=== PATIENT | female | born 1975 | race Caucasian/White ===

== ENCOUNTER → 2016-05-18 | Outpatient (CLI) | payer OTHER ==
[~2016-05-18] MED LIST: ASPI81TA28 PO; AZAT50TA25 PO; CALC-20 PO; ENAL5TAB PO; FERR325T PO; LEVOIUD VAGRING; MAGN400T5 PO; METO25TA3 PO; MULT-506 PO; OMEP20TA PO; PRED-301 PO; SYN25 PO; TACR1CAP7 PO
== END | disposition home or self-care (01) ==
LOC: C.LAB 09:57
PROVIDERS: ATTEND Family Medicine
DX: E03.9 Hypothyroidism, unspecified (principal)

== ENCOUNTER → 2016-06-01 | Outpatient (CLI) | payer OTHER | END | disposition home or self-care (01) | LOC: C.PAPS 14:17 | PROVIDERS: ATTEND Obstetrics & Gynecology | DX: Z12.4 Encounter for screening for malignant neoplasm of cervix (principal) ==

== ENCOUNTER → 2016-06-17 | Outpatient (CLI) | payer OTHER ==
[~2016-06-17] MED LIST changes: +FERR1TAB62 PO; -FERR325T PO
--- NOTE | 2016-06-17 15:21 | MAMMOGRAPHY REPORT ---
BILATERAL DIGITAL SCREENING MAMMOGRAM TOMOSYNTHESIS WITH CAD: 06/17/2016 CLINICAL HISTORY: Routine screening. Patient has no complaints. TECHNIQUE: Breast tomosynthesis in addition to standard 2D mammography was performed. Current study was also evaluated with a Computer Aided Detection (CAD) system. COMPARISON: Comparison is made to exam dated: 10/10/2013 mammogram - [facility]. BREAST COMPOSITION: The tissue of both breasts is extremely dense, which lowers the sensitivity of mammography. FINDINGS: No suspicious masses, calcifications, or areas of architectural distortion are noted in e ither breast. There has been no significant interval change compared to prior exams. IMPRESSION: ACR BI-RADS CATEGORY 1: NEGATIVE There is no mammographic evidence of malignancy. A 1 year screening mammogram is recommended. The p atient will receive written notification of the results. Approximately 10% of breast cancers are not detected with mammography. A negative mammographic repor t should not delay biopsy if a clinically suggestive mass is present. Dotty Hebert M.D. ah/:06/17/2016 15:08:39 Wagon Driver Salesperson: Sue EDMONDS(Audrey)(Maia)(BD), [facility] letter sent: Normal 1/2 BI-RADS Code: ACR BI-RADS Category 1: Negative
== END | disposition home or self-care (01) ==
LOC: C.MAMM 09:41
PROVIDERS: ATTEND Family Medicine
DX: Z12.31 Encounter for screening mammogram for malignant neoplasm of breast (principal)

== ENCOUNTER 2017-10-22 15:04 | Emergency (ER) | payer OTHER ==
[~2017-10-22] VITALS: Ht 167.6 cm; Wt 54.2 kg
[~2017-10-22 15:04] MED LIST changes: +LEVO1IUD2 VAGRING; -LEVOIUD VAGRING
[2017-10-22 15:05] VITALS: TEMP 36.6; Ht 167.6 cm; Wt 54.2 kg
[2017-10-22] MEDS ORDERED: LIDOCAINE 1% BUFFERED INJ 20 ML VIAL INFIL ONE (15:15)
[2017-10-22] MEDS ORDERED: TACR1CAP PO (15:44)
[2017-10-22] MEDS ORDERED: LEVO25TA5 PO (15:44)
[2017-10-22 15:50] VITALS: BP 110/74; PULSE 73; O2SAT 98
--- NOTE | 2017-10-22 16:30 | EMERGENCY ROOM VISIT NOTE ---
ED Visit Note First contact with patient: 15:09 Chief Complaint: I cut my left lower leg. History of Present Illness: Ms. Husain is a 42-year-old white female who ambulates into the ED accompanied by her daughter complaining of an anterior left lower leg laceration. Patient reports approximately 1 hour before she arrived in the emergency department she was reaching into. She accidentally bumped a container of yogurt. It fell out and struck her leg causing a full-thickness laceration. She control bleeding prior to arrival at the hospital. She denies any associated pain in the area of her laceration or throughout the ankle and foot. No foot weakness/numbness/tingling. Review of Systems: As noted above in history of present illness. Past Medical History: Heart disease, kidney stones, stroke, status post heart transplant and internal defibrillator placement. Current Medications: Toprol, aspirin, calcium, Vasotec, mag oxide, omeprazole, azathioprine, iron, multivitamins, prednisone, Prograf, levothyroxine. Allergies to Medications: Cephalosporins, hydralazine, penicillin, shellfish and sulfa. Social History: Patient is currently employed; she feels safe in her home environment; Tetanus Immunization Status: Patient reports up-to-date. Physical Examination: Vital Signs: Date Time Temp Pulse Resp B/P (MAP) Pulse Ox O2 Delivery O2 Flow Rate FiO2 10/22/17 15:50 73 16 110/74 98 10/22/17 15:05 36.6 68 20 121/69 96 Room Air GENERAL: 42-year-old female in no acute distress, nontoxic-appearing, afebrile and hemodynamically stable. NEUROLOGICAL: Awake, alert and oriented to person, place and time. Answering questions appropriately and following commands. Normal gait. Good hand eye coordination. No focal motor or sensory deficits. SKIN: Warm, dry and pink. Left Lower Leg: Over the anterior aspect of the left lower leg approximately 3-4 cm above the talus patient has a 1.6 cm full- thickness laceration. No active bleeding. LEFT LOWER EXTREMITY: No gross bony deformity. Soft tissue injury as noted above. No tenderness in the knee, ankle or foot. Full range of motion in plantarflexion and dorsiflexion of the ankle against resistance. Throughout the foot the skin was warm and pink and capillary refill is brisk. She was able to distinguish light sensations to all dermatomes. ED Course: Patient is assessed as noted above. Patient's medication list was reviewed. Patient was offered pain medication and refused. Wound Repair: Complexity: Basic: Verbal consent was obtained after the risks and benefits were explained. The skin was prepped with betadine and a sterile field set. Wound edges of the wound was anesthetized with 1.2 ml buffered 1% lidocaine. The wound was explored for foreign bodies and none found. Copious irrigation was performed using sterile saline. With direct pressure the bleeding subsided. Debridement was not performed. The wound edges were approximated using 5-0 Ethilon with 3 simple interrupted sutures. Hemostasis and excellent approximation was achieved. Antibacterial ointment and a sterile dressing applied. No complications and the patient tolerated the procedure well. Patient was educated about hugh's findings and instructed on her treatment plan; she verbalizes understanding and agreement with this plan. Clinical Impression: Laceration of the left lower leg. Disposition: Patient discharged home in stable condition; prior to departure he was reassessed and subjectively reported she was pain-free. Plan: Comfort measures, wound care, and signs of infection were discussed with the patient. Patient was encouraged to follow-up with PCP or return to the ED for signs of infection and/or suture removal in 10-12 days.
== END 2017-10-22 15:51 | disposition home or self-care (01) ==
LOC: C.EDB 15:04 → C.EDD 15:51
DX: S81.812A Laceration without foreign body, left lower leg, initial encounter (principal); W20.8XXA Other cause of strike by thrown, projected or falling object, initial encounter; I51.9 Heart disease, unspecified; Z95.0 Presence of cardiac pacemaker

== ENCOUNTER 2018-11-05 09:27 | Inpatient (IN) ==
[2018-11-05] MEDS ORDERED: ACETAMINOPHEN 500 MG TAB PO STA (09:48)
[2018-11-05] MEDS ORDERED: SODIUM CHLORIDE 0.9% 500 ML IV SCH (10:00)
--- NOTE | 2018-11-05 10:06 | Emergency Department Note ---
Entered by Milly Renteria acting as a scribe for Amadeo Figueroa MD History of Present Illness General Chief complaint: Abdominal Pain Stated complaint: LEFT UPPER BELLY PAIN Time Seen by Provider: 11/05/18 09:40 Source: patient History of Present Illness Provider complaint: Left sided abdominal pain Onset (ago): day(s) 3 Location: left Pain Consistency: + constant Maximum Pain Intensity: 5 Current Pain Intensity: 5 Relieved By: + immobilization (laying down) Exacerbated By: + movement (walking) and + other (talking, coughing, palpation to area) Associated symptoms: + denies other symptoms (hematuria, dysuria) and + fever /chills (no fever, chills) The patient is a 43 year old female who presents to the ED with complaints of constant left sided abdominal pain that started 3 days ago. The patient states that 3 months ago she was getting sick and the doctors believe she has Lymphoma. The patient states that they found a mass on her right kidney, but she denies hematuria and dysuria. The patient states the pain she is experiencing now is on her left side under her rib. The patient notes that she went to her PCP today, and they sent her to the ED. The patient denies a fever but states that she has had chills for the past 3 months, which she believes is from the Lymphoma. The patient rates her pain as a 5/10. The patient notes that the pain is relieved by laying down and is exacerbated by movement, talking, coughing, walking and palpation to the area. Home Medications Home Medications Medication Instructions Recorded Confirmed Type aspirin 81 mg PO HS 08/25/18 11/05/18 History calcium carbonate-vitamin D3 1 tab PO QAM 08/25/18 11/05/18 History fluticasone propionate 2 spray INTRANASAL QAM 08/25/18 11/05/18 History levothyroxine 25 mcg PO QAM 08/25/18 11/05/18 History magnesium oxide 400 mg PO PM 08/25/18 11/05/18 History metoprolol succinate 12.5 mg PO QAM 08/25/18 11/05/18 History multivitamin 1 tab PO QAM 08/25/18 11/05/18 History omeprazole 20 mg PO QAM 08/25/18 11/05/18 History pravastatin 10 mg PO QAM 08/25/18 11/05/18 History prednisone 5 mg PO QAM 08/25/18 11/05/18 History tacrolimus 2 mg PO BID 08/25/18 11/05/18 History azathioprine 100 mg PO DAILY 11/05/18 11/05/18 History ferrous sulfate 325 mg PO DAILY 11/05/18 11/05/18 History loratadine 10 mg PO PM 11/05/18 11/05/18 History Allergies Allergy/AdvReac Type Severity Reaction Status Date / Time Cephalosporins Allergy Unknown UNKNOWN Verified 11/05/18 10:57 hydralazine Allergy Unknown unknown Verified 11/05/18 10:57 Penicillins Allergy Unknown HIVES Verified 11/05/18 10:57 Sulfa (Sulfonamide Allergy Unknown HIVES Verified 11/05/18 10:57 Antibiotics) Past Med/Surg History Medical History History of implantable cardiac defibrillator (ICD) (Chronic) 03/2001; Removed 01/03/2012; Has retained pacer wire Hypothyroidism (Chronic) History of carotid artery dissection (Chronic) with CVA Thrombocytopenia (Chronic) Anemia (Chronic) History of heart transplant (Chronic) 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 and A total of 10 systems reviewed and were otherwise negative Physical Exam Vital Signs Vital Signs - 24 hr 11/05/18 09:32 11/05/18 11:11 11/05/18 12:29 Temperature 37.2 C Temperature Source Oral Sepsis Recent Fever Within 48 Hours No Sepsis New/Unexplained Change in Mental Status No Sepsis Action Taken by Nursing No Action Required Pulse Rate 99 H 94 H Pulse Rate [Right Finger] 94 H 86 Respiratory Rate 18 20 20 Respiratory Effort / Characteristics Non-Labored Spontaneous Non-Labored Non-Labored Respiratory Depth Normal Normal Normal Respiratory Pattern Regular Blood Pressure 111/70 Blood Pressure [Right Arm] 128/75 105/60 Blood Pressure Mean 83 Blood Pressure Mean [Right Arm] 92 75 Blood Pressure Position Sitting Pulse Oximetry 93 97 20 L Oxygen Delivery Method Room Air Room Air Room Air 11/05/18 14:58 Temperature Temperature Source Sepsis Recent Fever Within 48 Hours Sepsis New/Unexplained Change in Mental Status Sepsis Action Taken by Nursing Pulse Rate Pulse Rate [Right Finger] 76 Respiratory Rate 20 Respiratory Effort / Characteristics Respiratory Depth Respiratory Pattern Blood Pressure Blood Pressure [Right Arm] 104/65 Blood Pressure Mean Blood Pressure Mean [Right Arm] 78 Blood Pressure Position Pulse Oximetry 99 Oxygen Delivery Method Room Air GENERAL: Patient is in no acute distress. HEENT: No acute trauma, normocephalic atraumatic, mucous membranes moist, no nasal congestion, no scleral icterus. NECK: No stridor, no adenopathy, no meningismus, trachea is midline. LUNGS: Clear to auscultation bilaterally, no wheeze, no rhonchi, breath sounds equal. HEART: 2/6 systolic murmur, regular rate, regular rhythm. ABDOMEN: Significantly tender in the epigastrium and LUQ. Small fullness/lesion just above the umbilicus which is tender but reportedly chronic. Soft, bowel sounds positive, no hernias, no peritonitis. EXTREMITIES: No cyanosis or edema, full range of motion of all the joints without pain or difficulty, no signs for acute trauma. NEUROLOGIC: Oriented x 3, no acute motor or sensory deficits, no focal weakness. SKIN: No rash, no jaundice, no diaphoresis. Course 0945: Past medical records reviewed. The patient was evaluated in room B8. A complete history and physical exam was performed. 1042: Review of records from [facility] shows CT abdomen/pelvis with IV and oral contrast and CT chest with contrast was taken on 10/09/2018. Findings show 1: Soft tissue mass in the right renal hilar region with involvement of the right renal pelvis. Differentials include lymphoma and urothelial malignancy. Please correlate with histopathology. 2: New mild splenomegaly. No lymphadenopathy. 3: Lung changes suggesting edema and inflammation. Attention recommended on follow-up CT. 4: Small pleural effusions. 1044: Review of records from [facility] shows Lab Collection from 10/24/2018. Results show Creatinine 0.99, Sodium 142, Total Bilirubin 0.5, Alkaline Phosphatase 46, AST 13, ALT 5, White Blood Cells 4.6, Hemoglobin 7.8, Platelets 97. 1112: I reevaluated the patient and she is resting comfortably. I updated her on the test results. 1249: I reevaluated the patient and she is doing okay. I updated her on the CT results. I will be calling [facility]. 1340: I discussed the patient's case with the heart transplant center at [place]. They will be calling us back after they consult with several specialists. 1437: [facility] called back and said that they would like the patient to be transferred to their facility. They are going to call back to tell us whether or not they will have a bed ready today. 1446: I updated the patient. Her family is now here with her. 1502: [facility] called back and said that they will have a bed available tomorrow. The patient states that she is willing to stay here tonight and be transferred to [place] tomorrow. 1510: I discussed the patient's case with Charmaine Gillis PRANUSHA MACHUCA. She will be accepting the patient for Dr. Stephenson [facility] Hospitalist. They will evaluate the patient for further management. Consultations Consultation #1: I discussed the patient's case with the heart transplant center at [place]. They will be calling us back after they consult with several specialists. Time: 13:40 Consultation #2: I discussed the patient's case with Charmaine Gillis PRANUSHA MACHUCA. She will be accepting the patient for Dr. Stephenson [facility] Hospitalist. They will evaluate the patient for further management. Time: 15:10 Administered Medications Discontinued Medications Acetaminophen (Tylenol) 1,000 mg PO NOW STA Stop: 11/05/18 09:49 Last Admin: 11/05/18 10:07 Dose: 1,000 mg Documented by: [id number] Sodium Chloride (Nss) 500 mls @ 999 mls/hr IV .Q31M ALFREDITO Stop: 11/05/18 10:30 Last Infusion: 11/05/18 11:10 Dose: 0 mls/hr Documented by: [id number] Admin: 11/05/18 10:04 Dose: 999 mls/hr Documented by: [id number] Ioversol (Optiray 320 100ml) 94 ml IV ONCE PRN PRN Reason: Interaction Checking Stop: 11/09/18 12:06 Last Admin: 11/05/18 12:08 Dose: 94 ml Documented by: [id number] Medical Decision Making Differential Diagnosis Differentials include splenic rupture, splenic infarction, renal hematoma, worsening lymphoma, UTI, pneumonia, gastritis, musculoskeletal pain. Medical Records Attestation: I reviewed the patient's medical records. Home Medications Current Medication List: was personally reviewed by ri Laboratory Data Attestation: I reviewed the patient's lab results. Result diagrams: 11/05/18 10:03 11/05/18 10:03 Lab Results 11/05/18 11/05/18 11/05/18 Range/Units 10:03 10:03 11:05 WBC 7.11 (4.8-10.8) K/uL RBC 2.72 L (4.2-5.4) M/uL Hgb 8.2 L (12.0-16.0) g/dL Hct 25.8 L (37-47) % MCV 94.9 (80-100) fL MCH 30.1 (25-34) pg MCHC 31.8 L (32-36) g/dL RDW Std Deviation 61.5 H (36.4-46.3) fL RDW Coeff of Rajinder 18.1 H (11.5-14.5) % Plt Count 87 L (130-400) K/uL MPV 9.7 (7.4-10.4) fL Immature Gran % (Auto) 0.4 % Neut % (Auto) 71.1 % Lymph % (Auto) 13.9 % [place] % (Auto) 13.9 % Eos % (Auto) 0.4 % Baso % (Auto) 0.3 % Immature Gran # (Auto) 0.03 H (0.00-0.02) K/uL Neut # (Auto) 5.05 (1.4-6.5) K/uL Lymph # (Auto) 0.99 L (1.2-3.4) K/uL [place] # (Auto) 0.99 H (0.11-0.59) K/uL Eos # (Auto) 0.03 (0-0.5) K/uL Baso # (Auto) 0.02 (0-0.2) K/uL Platelet Estimate Decreased L (Normal) Anisocytosis Present Spherocytes 1+ Sodium 140 (136-145) mmol/L Potassium 4.1 (3.5-5.1) mmol/L Chloride 107 (98-107) mmol/L Carbon Dioxide 28 (21-32) mmol/L Anion Gap 5.0 (3-11) BUN 20 H (7-18) mg/dl Creatinine 0.96 (0.6-1.2) mg/dl Est Cr Clr Drug Dosing 62.3 ml/min Est GFR ( Amer) 82.8 Est GFR (Non-Af Amer) 71.4 BUN/Creatinine Ratio 20.7 H (10-20) Glucose 93 (70-99) mg/dl Calcium 8.3 L (8.5-10.1) mg/dl Total Bilirubin 0.5 (0.2-1) mg/dl AST 16 (15-37) U/L ALT 13 (12-78) U/L Alkaline Phosphatase 63 (45-117) U/L Total Protein 6.7 (6.4-8.2) gm/dl Albumin 2.7 L (3.4-5.0) gm/dl Globulin 4.0 (2.5-4.0) gm/dl Albumin/Globulin Ratio 0.7 L (0.9-2) Lipase 66 L (73-393) U/L Urine Color Yellow Urine Appearance Clear (Clear) Urine pH 8.0 H (4.5-7.5) Ur Specific [place] 1.013 (1.000-1.030) Urine Protein Negative (Negative) Urine Glucose (UA) Negative (Negative) Urine Ketones Negative (Negative) Urine Blood Negative (Negative) Urine Nitrite Negative (Negative) Urine Bilirubin Negative (Negative) Urine Urobilinogen Negative (Negative) Ur Leukocyte Esterase Negative (Negative) Imaging Data Radiologist's Impression: Radiology results as stated below per my review and the radiologist's interpretation: XR chest 1V portable CLINICAL HISTORY: Epigastric pain COMPARISON STUDY: 08/25/2018 FINDINGS: There is a fracture catheter fragment projected over the left brachiocephalic and subclavian vein region, unchanged from the prior study. There is a small metallic density projected over the right medial supraclavicular region. There are postsurgical changes of a midline sternotomy. The cardiac and mediastinal contours remain stable. There is no failure. There is no focal pulmonary consolidation. There is no free intraperitoneal air.[ IMPRESSION: No active disease in the chest. Electronically signed by: Fransico Ritter M.D. 11/05/2018 10:[address] abd pelvis oral and IV con CLINICAL HISTORY: Left upper quadrant abdominal pain HISTORY OF PRIOR HEART TRANSPLANT AND LYMPHOMA. COMPARISON STUDY: None. TECHNIQUE: The patient was scanned following administration of dilute oral co ntrast, and in a dynamic helical fashion during intravenous administration of 94 cc of Optiray 320 A dose lowering technique was utilized adhering to the principles of ALARA. CT DOSE: 282.93 mGy.cm FINDINGS: Lower chest: There are areas of basilar atelectasis. There are small bilateral pleural effusions with subtle irregularity of the pleural surface. Liver: The contrast-enhanced liver is normal in size, contour, and attenuation. There is no intrahepatic biliary ductal dilatation. The hepatic veins and portal veins are patent. Gallbladder: Unremarkable. Spleen: The spleen is enlarged measuring 14.5 cm. Pancreas: Unremarkable. Adrenal glands: Unremarkable. Kidneys: No cortical renal masses are visualized. There is left renal cortical scarring. There is no hydronephrosis. There is a right renal pelvic mass measuring 3 cm. This encases the proximal right ureter. Bowel: There are no transition zones to indicate bowel obstruction. There is colonic diverticulosis. There is no evidence of acute diverticulitis. There is no evidence of acute appendicitis Peritoneum: There is minimal free pelvic fluid. There is no free intraperitoneal air Vasculature: The abdominal aorta is normal in course and caliber. Adenopathy: None. Pelvic viscera: There is mild nonspecific enlargement of the lower uterine segment/cervix. Skeletal structures: No destructive osseous lesions are seen. IMPRESSION: 1. Small bilateral pleural effusions with subtle irregularity of the pleural surface 2. Splenomegaly 3. 3 cm right mass at the level of the right renal pelvis with encasement of the proximal right ureter. Although nonspecific, given the history of lymphoma and the lack of hydronephrosis, lymphoma is favored over a uroepithelial neoplasm 4. Minimal free pelvic fluid 5. Nonspecific enlargement of the lower uterine segment/cervix Electronically signed by: Fransico Ritter M.D. 11/05/2018 12:35 PM Blood Pressure Blood Pressure Findings: Normal blood pressure Blood Pressure Disposition: did not require urgent referral MDM Narrative There is no leukocytosis. The patient is anemic with a hemoglobin of 8.2, she has been running a low hemoglobin value lately. Platelet count also somewhat low at 87. She has a history lately of a lower platelet count. No significant electrolyte abnormality or kidney failure. No evidence for pancreatitis by her testing. No liver enzyme elevation. Urinalysis does not show infection. Chest film did not show CHF or pneumonia. Abdominal and pelvis CT shows the already known right renal hilar mass. The spleen was enlarged at 14.5 cm. There was no evidence for abscess, no evidence for intra-abdominal bleeding. On exam, the patient was not febrile or toxic. The patient was given oral Tylenol for pain, she did not want anything stronger. She was given IV saline for hydration. I spoke to the patient at length, I did contact the [facility] heart transplant center. They recommended transfer but a bed will not be available until tomorrow. Hospitalization at our facility until then was jhony mmended I spoke to case management, I talked with the on-call hospitalist. The patient is aware of all her findings and happy with the plan/care. In short, the cause for the patient's pain is unclear. Further work-up is required. This will be accomplished at the [facility]. Impression & Plan Left upper quadrant pain, History of heart transplant, Splenomegaly, Right renal mass, Anemia Discharge Plan Visit Data *Final* Discharge Date/Time: 11/05/18 16:17 Chief Complaint: Abdominal Pain Stated Complaint: LEFT UPPER BELLY PAIN ED Provider: Amadeo Figueroa Discharge Problem: Left upper quadrant pain, History of heart transplant, Splenomegaly, Right renal mass, Anemia Patient Disposition: Admitted As Inpatient Discharge Instructions Interventions: ED Discharge Assessment Last Done: 11/05/18 16:17 Discharge Problem: Anemia Qualifiers: Anemia type: unspecified type Qualified Code(s): D64.9 - Anemia, unspecified The araibe's documentation has been prepared under my direction and personally reviewed by me in its entirety. I confirm that the note above accurately reflects all work, treatment, procedures, and medical decision making performed by me.
[2018-11-05 10:12] LABS: Hematocrit (blood only) 25.8 % (37-47); Hemoglobin 8.2 g/dL (12.0-16.0); Mean Corpuscular Hgb Conc 31.8 g/dL (32-36); Mean Corpuscular Volume 94.9 fL (80-100); RDW Coefficient of Variation 18.1 % (11.5-14.5); RDW Standard Deviation 61.5 fL (36.4-46.3); Red Blood Count 2.72 M/uL (4.2-5.4); White Blood Count 7.11 K/uL (4.8-10.8)
--- NOTE | 2018-11-05 10:21 | XRay Report ---
XR chest 1V portable CLINICAL HISTORY: Epigastric pain COMPARISON STUDY: 08/25/2018 FINDINGS: There is a fracture catheter fragment projected over the left brachiocephalic and subclavia n vein region, unchanged from the prior study. There is a small metallic density projected over the r ight medial supraclavicular region. There are postsurgical changes of a midline sternotomy. The cardi ac and mediastinal contours remain stable. There is no failure. There is no focal pulmonary consolida tion. There is no free intraperitoneal air.[ IMPRESSION: No active disease in the chest. Electronically signed by: Fransico Ritter M.D. 11/05/2018 10:20 AM
[2018-11-05 10:32] LABS: Mean Platelet Volume 9.7 fL (7.4-10.4); Platelet Count 87 K/uL (130-400)
[2018-11-05 10:33] LABS: Anisocytosis Present; Basophils # (auto) 0.02 K/uL (0-0.2); Basophils % (auto) 0.3 %; Eosinophils # (auto) 0.03 K/uL (0-0.5); Eosinophils % (auto) 0.4 %; Immature Granulocytes # (auto) 0.03 K/uL (0.00-0.02); Immature Granulocytes % (auto) 0.4 %; Lymphocytes # (auto) 0.99 K/uL (1.2-3.4); Lymphocytes % (auto) 13.9 %; Monocytes # (auto) 0.99 K/uL (0.11-0.59); Monocytes % (auto) 13.9 %; Neutrophils # (auto) 5.05 K/uL (1.4-6.5); Neutrophils % (auto) 71.1 %; Platelet Estimate Decreased (Normal); Spherocytes 1+
[2018-11-05 10:35] LABS: Albumin Level 2.7 gm/dl (3.4-5.0); BUN Creatinine Ratio 20.7 (10-20); Calcium 8.3 mg/dl (8.5-10.1); Creatinine Clr Calc Pharmacy 62.3 ml/min; Est GFR (African American) 82.8; Est GFR (Non-African American) 71.4; Potassium 4.1 mmol/L (3.5-5.1)
[2018-11-05 10:37] LABS: Albumin Globulin Ratio 0.7 (0.9-2); Bilirubin,Total 0.5 mg/dl (0.2-1); Total Protein 6.7 gm/dl (6.4-8.2)
[2018-11-05 11:28] LABS: Appearance Urine Clear (Clear); Bilirubin Urine Negative (Negative); Blood Urine Negative (Negative); Color Urine Yellow; Glucose Urine UA Negative (Negative); Ketones Urine Negative (Negative); Leukocyte Esterase Urine Negative (Negative); Nitrite Urine Negative (Negative); Protein Urine Negative (Negative); Specific Gravity Urine 1.013 (1.000-1.030); Urobilinogen Urine Negative (Negative)
[2018-11-05] MEDS ORDERED: IOVERSOL 100ml IV PRN (12:07)
--- NOTE | 2018-11-05 12:36 | CT Scan Report ---
CT abd pelvis oral and IV con CLINICAL HISTORY: Left upper quadrant abdominal pain HISTORY OF PRIOR HEART TRANSPLANT AND LYMPHOMA. COMPARISON STUDY: None. TECHNIQUE: The patient was scanned following administration of dilute oral contrast, and in a dynamic helical fashion during intravenous administration of 94 cc of Optiray 320 A dose lowering technique was utilized adhering to the principles of ALARA. CT DOSE: 282.93 mGy.cm FINDINGS: Lower chest: There are areas of basilar atelectasis. There are small bilateral pleural effusions with subtle irregularity of the pleural surface. Liver: The contrast-enhanced liver is normal in size, contour, and attenuation. There is no intrahepa tic biliary ductal dilatation. The hepatic veins and portal veins are patent. Gallbladder: Unremarkable. Spleen: The spleen is enlarged measuring 14.5 cm. Pancreas: Unremarkable. Adrenal glands: Unremarkable. Kidneys: No cortical renal masses are visualized. There is left renal cortical scarring. There is no hydronephrosis. There is a right renal pelvic mass measuring 3 cm. This encases the proximal right ur eter. Bowel: There are no transition zones to indicate bowel obstruction. There is colonic diverticulosis. There is no evidence of acute diverticulitis. There is no evidence of acute appendicitis Peritoneum: There is minimal free pelvic fluid. There is no free intraperitoneal air Vasculature: The abdominal aorta is normal in course and caliber. Adenopathy: None. Pelvic viscera: There is mild nonspecific enlargement of the lower uterine segment/cervix. Skeletal structures: No destructive osseous lesions are seen. IMPRESSION: 1. Small bilateral pleural effusions with subtle irregularity of the pleural surface 2. Splenomegaly 3. 3 cm right mass at the level of the right renal pelvis with encasement of the proximal right urete r. Although nonspecific, given the history of lymphoma and the lack of hydronephrosis, lymphoma is fa vored over a uroepithelial neoplasm 4. Minimal free pelvic fluid 5. Nonspecific enlargement of the lower uterine segment/cervix Electronically signed by: Fransico Ritter M.D. 11/05/2018 12:35 PM
--- NOTE | 2018-11-05 15:54 | History & Physical Report ---
Date of Service November 05, 2018 Assessment & Plan (1) Left upper quadrant pain: (2) Splenomegaly: (3) Right renal mass: Pt with chills, night sweats, weight loss x 3 months with current workup for suspected lymphoma presented with c/o LUQ pain with movement x 4 days In ER afebrile, vital stable, no leukocytosis. H/H: 8.2/25.8 (hgb: 9.2 on 08/27/18), Plt: 87 (was 120 on 08/27/18), BUN: 20, Cr: 0.96, GFR: 71, Lipase and Liver functions WNL CT ABD/PELVIS W/ Oral and IV Contrast: 1. Small bilateral pleural effusions with subtle irregularity of the pleural surface 2. Splenomegaly 3. 3 cm right mass at the level of the right renal pelvis with encasement of the proximal right ureter. Although nonspecific, given the history of lymphoma and the lack of hydronephrosis, lymphoma is favored over a uroepithelial neoplasm 4. Minimal free pelvic fluid 5. Nonspecific enlargement of the lower uterine segment/cervix Suspect LUQ secondary to splenomegaly -In ER given 500ml NS, Tylenol po -ER in contact with [facility] heart transplant center and transfer center and was requesting transfer however, no current bed opening. They wish for further workup to be completed at [facility] -Will allow normal diet as pt tolerating without any increased abdominal pain -Pain control prn -Awaiting bed opening at [facility] for transfer to heart transplant center. Accepting Physician: Dr: Dana Stewart. 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 at [facility] on 12/2011 -Continue tacrolimus, azathioprine, prednisone (7) History of carotid artery dissection: History carotid artery dissection with CVA -Continue aspirin, statin, metoprolol (8) Hypothyroidism: TSH: 3.4 on 08/25/2018 -Continue levothyroxine DVT Prophylaxis -SCDs secondary to anemia, thrombocytopenia Disposition: Plan for transfer to [facility] for further work-up secondary to history of heart transplant, current work-up for lymphoma when bed becomes available Full code Follows with Dr Milton for routine care Pt was seen and care coordinated with Dr Glez. See addendum History of Present Illness Chief Complaint: Abdominal pain Primary Care Provider: Dell Milton MD Pt is 43 y/o F with PMH cardiomyopathy s/p heart transplant in 12/2018 at [facility], h/o carotid artery dissection with CVA, hypothyroidism presented to ER with complaint of abdominal pain x4 days. Pain is made worse with movement, walking. Denies any N/V/D and has been eating and drinking without difficulty or aggravated abdominal pain. Patient with recent 3-month history of chills, night sweats, weight loss. Denies any changes in those symptoms. Denies any recorded fevers, urinary symptoms. Current work-up for suspected lymphoma. Has been following with [facility]. On 11/01/18 had R ureteroscopy and states was doing well post procedure. Denies CLIFTON, dizziness, syncope, vision changes, neck pain, CP, SOB, orthopnea, palpitations, cough, sore throat, choking, otalgia, rhinorrhea, paresthesias, weakness, extremity weakness, extremity edema, rashes. Today in ER had workup with CT abd/pelvis showing 3 cm right mass at the level of the right renal pelvis with encasement of the proximal right ureter. ER physician in contact with [facility] Heart transplant center and transfer center. [facility] wanted pt transferred however no bed available today and requested pt being admitted and transferred when bed available. Prefer to do further workup at [facility]. Accepting Physician Dr Dana Stewart. Allergies Allergy/AdvReac Type Severity Reaction Status Date / Time Cephalosporins Allergy Unknown UNKNOWN Verified 11/05/18 10:57 hydralazine Allergy Unknown unknown Verified 11/05/18 10:57 Penicillins Allergy Unknown HIVES Verified 11/05/18 10:57 Sulfa (Sulfonamide Allergy Unknown HIVES Verified 11/05/18 10:57 Antibiotics) Home Medications Home Medications Medication Instructions Recorded Confirmed Type aspirin 81 mg PO HS 08/25/18 11/05/18 History calcium carbonate-vitamin D3 1 tab PO QAM 08/25/18 11/05/18 History fluticasone propionate 2 spray INTRANASAL QAM 08/25/18 11/05/18 History levothyroxine 25 mcg PO QAM 08/25/18 11/05/18 History magnesium oxide 400 mg PO PM 08/25/18 11/05/18 History metoprolol succinate 12.5 mg PO QAM 08/25/18 11/05/18 History multivitamin 1 tab PO QAM 08/25/18 11/05/18 History omeprazole 20 mg PO QAM 08/25/18 11/05/18 History pravastatin 10 mg PO QAM 08/25/18 11/05/18 History prednisone 5 mg PO QAM 08/25/18 11/05/18 History tacrolimus 2 mg PO BID 08/25/18 11/05/18 History azathioprine 100 mg PO DAILY 11/05/18 11/05/18 History ferrous sulfate 325 mg PO DAILY 11/05/18 11/05/18 History loratadine 10 mg PO PM 11/05/18 11/05/18 History Past Med/Surg History Medical History History of implantable cardiac defibrillator (ICD) (Chronic) 03/2001; Removed 01/03/2012; Has retained pacer wire Hypothyroidism (Chronic) History of carotid artery dissection (Chronic) with CVA Thrombocytopenia (Chronic) Anemia (Chronic) History of heart transplant (Chronic) h/o viral cardiomyopathy s/p heart transplant 01/03/2012 at [facility] Immunocompromised Lymphoma Myocarditis Family History Grandmother (Paternal) Breast cancer Mother Thyroid disorder Social History Preferred Language: Indonesian Communication Ability: Effective Beliefs That Will Affect Care: None Current Living Situation: Spouse Other Information That Helps Us Care for You: No Feels Safe at Home: Yes Safety Concerns: Feels Safe At This Time Smoking Status: Never smoker Hx Alcohol Use: No Hx Substance Use: No Review of Systems Review of Systems: All systems reviewed & are unremarkable except as noted in HPI & below Physical Exam Physical Exam: General: no acute distress, WDWN Head: normocephalic, atraumatic Eyes: PERRL, EOM's intact, conjunctiva non-injected, anicteric ENT: normal inspection external ears, nose, mucous membranes moist Neck: supple, trachea midline Lungs: clear, no respiratory distress, no wheezing/rhonchi/rales CV: RRR, no murmur, no pretibial edema Abd: normal BS, soft, +tenderness to light palpation LUQ Ext: no cyanosis, no calf tenderness Neuro: A&O x 3, no focal deficits noted, normal affect Skin: warm, dry Results & Data Vital Signs (Past 12 Hours) Vital Signs Temp Pulse Pulse Resp BP BP Pulse Ox 11/05/18 14:58 76 20 104/65 99 11/05/18 12:29 86 20 105/60 20 L 11/05/18 11:11 94 H 94 H 20 128/75 97 11/05/18 09:32 37.2 C 99 H 18 111/70 93 Laboratory Results Short CBC 11/05/18 Range/Units 10:03 WBC 7.11 (4.8-10.8) K/uL Hgb 8.2 L (12.0-16.0) g/dL Hct 25.8 L (37-47) % Plt Count 87 L (130-400) K/uL BMP 11/05/18 10:03 Sodium 140 Potassium 4.1 Chloride 107 Carbon Dioxide 28 BUN 20 H Creatinine 0.96 Glucose 93 Calcium 8.3 L Liver Function 11/05/18 Range/Units 10:03 Total Bilirubin 0.5 (0.2-1) mg/dl AST 16 (15-37) U/L ALT 13 (12-78) U/L Alkaline Phosphatase 63 (45-117) U/L Albumin 2.7 L (3.4-5.0) gm/dl Urine 11/05/18 Range/Units 11:05 Urine Color Yellow Urine Appearance Clear (Clear) Urine pH 8.0 H (4.5-7.5) Ur Specific [place] 1.013 (1.000-1.030) Urine Protein Negative (Negative) Urine Glucose (UA) Negative (Negative) Diagnostic Findings CXR: IMPRESSION: No active disease in the chest. CT ABD/PELVIS: IMPRESSION: 1. Small bilateral pleural effusions with subtle irregularity of the pleural surface 2. Splenomegaly 3. 3 cm right mass at the level of the right renal pelvis with encasement of the proximal right ureter. Although nonspecific, given the history of lymphoma and the lack of hydronephrosis, lymphoma is favored over a uroepithelial neoplasm 4. Minimal free pelvic fluid 5. Nonspecific enlargement of the lower uterine segment/cervix Code Status & VTE Plan VTE Prophylaxis Plan VTE Prophylaxis will be ordered: Yes Supervising Physician Co-Signing Physician Notes I have seen and examined the patient and have discussed the case with the provider above. I agree with the assessment and plan as stated with the following exceptions. 43 yo cardiac transplant patient on long-term immunosuppressant therapy with several months of constitutional symptoms, and a recent workup consistent with presumed lymphoma at [facility]) presents with LUQ pain that was severe with minimal movement. She has splenomegaly on imaging and workup reveals noninfected urine, normal renal function, no WBC count, and worsening anemia and thrombocytopenia. She denies any active bleeding. On exam she was hemodynamically stable and afebrile and reporting early satiety. Heart and lung exam were normal. Abdomen with very tender to palpation in the LUQ. Abdomen was otherwise soft and nondistended. Assessment: (1) severe abdominal pain, presumed 2/2 splenomegaly (2) R renal mass presumed lymphoma, (3) immunosuppressed s/p cardiac transplant. She underwent a ureteroscopy with cytology washings but no biopsy of the ureteral mass could be performed. This is scheduled, and we will transfer her there now to continue the workup that was already started regarding this neoplastic process by the physicians who know her supported by her transplant team. Cont supportive care for pain including morphine, Oxycodone or other non-narcotic drugs as needed. Unrestricted diet in setting of weight loss. DO [place] (1) Anemia Anemia type: unspecified type Qualified Code(s): D64.9 - Anemia, unspecified
[2018-11-05] MEDS ORDERED: MoRPHine SULFATE 2 MG/ML CARP IV PRN ×2 (16:26→19:36)
--- NOTE | 2018-11-05 20:14 | Communication Note ---
Date of Service: November 05, 2018
--- NOTE | 2018-11-05 20:23 | Discharge Summary ---
Date of Service November 05, 2018 Admission HPI Per Admitting Provider Pt is 43 y/o F with PMH cardiomyopathy s/p heart transplant in 12/2018 at [facility], h/o carotid artery dissection with CVA, hypothyroidism presented to ER with complaint of abdominal pain x4 days. Pain is made worse with movement, walking. Denies any N/V/D and has been eating and drinking without difficulty or aggravated abdominal pain. Patient with recent 3-month history of chills, night sweats, weight loss. Denies any changes in those symptoms. Denies any recorded fevers, urinary symptoms. Current work-up for suspected lymphoma. Has been following with [facility]. On 11/01/18 had R ureteroscopy and states was doing well post procedure. Denies CLIFTON, dizziness, syncope, vision changes, neck pain, CP, SOB, orthopnea, palpitations, cough, sore throat, choking, otalgia, rhinorrhea, paresthesias, weakness, extremity weakness, extremity edema, rashes. Today in ER had workup with CT abd/pelvis showing 3 cm right mass at the level of the right renal pelvis with encasement of the proximal right ureter. ER physician in contact with [facility] Heart transplant center and transfer center. [facility] wanted pt transferred however no bed available today and requested pt being admitted and transferred when bed available. Prefer to do further workup at [facility]. Accepting Physician Dr Dana Stewart. Admission Exam Per Admitting Provider General: no acute distress, WDWN Head: normocephalic, atraumatic Eyes: PERRL, EOM's intact, conjunctiva non-injected, anicteric ENT: normal inspection external ears, nose, mucous membranes moist Neck: supple, trachea midline Lungs: clear, no respiratory distress, no wheezing/rhonchi/rales CV: RRR, no murmur, no pretibial edema Abd: normal BS, soft, +tenderness to light palpation LUQ Ext: no cyanosis, no calf tenderness Neuro: A&O x 3, no focal deficits noted, normal affect Skin: warm, dry Principal Diagnosis Severe Abdominal pain Discharge Data Allergies Allergy/AdvReac Type Severity Reaction Status Date / Time Cephalosporins Allergy Unknown UNKNOWN Verified 11/05/18 10:57 hydralazine Allergy Unknown unknown Verified 11/05/18 10:57 Penicillins Allergy Unknown HIVES Verified 11/05/18 10:57 Sulfa (Sulfonamide Allergy Unknown HIVES Verified 11/05/18 10:57 Antibiotics) Ordered Studies 11/05/18 09:48 CT abd pelvis oral and IV con IMPRESSION: 1. Small bilateral pleural effusions with subtle irregularity of the pleural surface 2. Splenomegaly 3. 3 cm right mass at the level of the right renal pelvis with encasement of the proximal right ureter. Although nonspecific, given the history of lymphoma and the lack of hydronephrosis, lymphoma is favored over a uroepithelial neoplasm 4. Minimal free pelvic fluid 5. Nonspecific enlargement of the lower uterine segment/cervix CXR: IMPRESSION: No active disease in the chest. Hospital Course (1) Left upper quadrant pain: Pt is 43 y/o F with PMH cardiomyopathy s/p heart transplant in 12/2018 at [facility], h/o carotid artery dissection with CVA, hypothyroidism presented to ER on 11/05/18 with c/o LUQ abdominal pain x4 days. Pain worse with any movement. No fevers, N/V/D. Reported early satiety. Patient with recent 3-month history of chills, night sweats, weight loss with current workup there for suspected lymphoma. Pt afebrile, vitals stable, no leukocytosis, normal LFTs and lipase, noted anemia and thrombocytopenia with H/H: 8.2/25.8 (hgb: 9.2 on 08/27/18), Plt: 87 (was 120 on 08/27/18), BUN: 20, Cr: 0.96, GFR: 71. CT ABD/PELVIS W/ Oral and IV Contrast: Splenomegaly, 3 cm right mass at the level of the right renal pelvis with encasement of the proximal right ureter, Minimal free pelvic fluid, Nonspecific enlargement of the lower uterine segment/cervix [facility] Heart transplant center and transfer center was contacted initially by ER physician. [facility] wanted pt transferred to do further workup there, however no bed available currently. Accepting Physician Dr Dana Stewart. During hospital course with pt continued LUQ pain with any movement. Pain medications ordered including IV Morphine, however pt very hesitant about taking pain medications. Exam: pt afebrile, hemodynamically stable. +LUQ pain with light palpation with guarding otherwise normal exam. Pt to be transferred to [facility] for higher level of care, center with transplant team, continuity of care. Total Time Total Time Spent Total Time Spent (In Minutes): 60 Discharge Plan Discharge Items Patient Disposition: Transfer Acute Care Hospital Reason For Visit: ABDOMINAL PAIN Discharge Diagnosis: Severe Abdominal pain Condition: Good Discharge Goals: Diagnostic testing and Therapeutic intervention Activity: Resume your previous activity Non-emergency contact: Primary Care Provider Call non-emergency contact if: you have any medication questions, your symptoms worsen, your pain is not controlled and you have a fever Follow-up/Referrals: Dell Milton MD [Primary Care Provider] - Diet: Regular Addtl Provider Instructions: Current Inpatient Medications Acetaminophen (Tylenol) 650 mg PO Q4H PRN PRN Reason: pain/fever Stop: 12/05/18 16:25 Aspirin (Ecotrin Ectab) 81 mg PO HS [facility] Stop: 12/05/18 20:59 Azathioprine (Imuran) 100 mg PO DAILY [facility] Stop: 12/06/18 08:59 Ferrous Sulfate (Feosol) 325 mg PO DAILY [facility] Stop: 12/06/18 08:59 Fluticasone Propionate (Flonase) 2 sprays CASIE QAM [facility] Stop: 12/06/18 08:59 Levothyroxine Sodium (Synthroid) 25 mcg PO DAILYBB [facility] Stop: 12/06/18 06:29 Loratadine (Claritin) 10 mg PO PM [facility] Stop: 12/05/18 20:59 Magnesium Oxide (Mag-Ox) 400 mg PO PM [facility] Stop: 12/05/18 20:59 Metoprolol Succinate (Toprol Xl) 12.5 mg PO QAM [facility] Stop: 12/06/18 08:59 Morphine Sulfate (Morphine Sulfate) 1 mg IV Q1H PRN PRN Reason: Pain Stop: 11/19/18 16:25 Multivitamins (Multivitamin Tab) 1 tab PO QAM [facility] Stop: 12/06/18 08:59 Multivitamins/Minerals (Caltrate Plus) 1 tab PO QAM [facility] Stop: 12/06/18 08:59 Oxycodone HCl (Roxicodone Immediate Rel) 5 mg PO Q6H PRN PRN Reason: Moderate Pain Stop: 11/19/18 16:25 Pantoprazole Sodium (Protonix) 40 mg PO DAILY [facility] Stop: 12/06/18 08:59 Pravastatin Sodium (Pravachol) 10 mg PO QAM [facility] Stop: 12/06/18 08:59 Prednisone (Prednisone) 5 mg PO QAM [facility] Stop: 12/06/18 08:59 Tacrolimus (Prograf) 2 mg PO BID [facility] Stop: 12/05/18 20:59 You are current being transferred to [facility] for further care. It recommended that you follow up with PCP within one week of discharge. It was a pleasure taking care of you! Please call if you have any questions or problems. You can reach a [facility] hospitalist on duty at [facility] 24 hours a day by calling [phone]. Take care of yourself. Kassy Glez, DO [facility] Prescriptions: Continued aspirin 81 mg Tablet,Delayed Release (Dr/Ec) 81 mg PO HS RF: 0 calcium carbonate-vitamin D3 1,000 mg(2,500 mg)-800 unit Tablet 1 tab PO QAM RF: 0 levothyroxine 25 mcg Tablet 25 mcg PO QAM RF: 0 magnesium oxide 400 mg magnesium Capsule 400 mg PO PM RF: 0 metoprolol succinate 25 mg Tablet Extended Release 24 Hr 12.5 mg PO QAM RF: 0 multivitamin Tablet 1 tab PO QAM RF: 0 omeprazole 20 mg Tablet,Delayed Release (Dr/Ec) 20 mg PO QAM RF: 0 prednisone 5 mg Tablet 5 mg PO QAM RF: 0 tacrolimus 1 mg Capsule,Extended Release 24hr 2 mg PO BID RF: 0 fluticasone propionate 50 mcg/actuation [place],Suspension 2 spray INTRANASAL QAM RF: 0 pravastatin 10 mg Tablet 10 mg PO QAM RF: 0 azathioprine 50 mg tablet 100 mg PO DAILY RF: 0 ferrous sulfate 325 mg (65 mg iron) Tablet 325 mg PO DAILY RF: 0 loratadine 10 mg Tablet 10 mg PO PM RF: 0 Stand-Alone Forms: Call Back Authorization, My [facility] Discharge Orders: Discharge Order (Routine); Ordered 11/05/18 Ordered By: Charmaine Noriega Admission Data Admit Date/Time: 11/05/18 15:52 Attending Provider: Christoph Humphrey Admit Provider: Kassy lGez Primary Care Provider: Dell Milton Other Providers: Kassy Glez Service: Medical
[2018-11-05] MEDS: MAGNESIUM OXIDE 400 MG TAB PO SCH ×2 (20:43→20:55)
[2018-11-05] MEDS: LORATADINE 10 MG TAB PO SCH ×2 (20:43→20:54)
[2018-11-05] MEDS: ASPIRIN 81 MG ECTAB PO SCH ×2 (20:43→20:54)
[2018-11-05] MEDS: TACROLIMUS 1 MG CAP PO SCH ×2 (20:43→20:53)
[2018-11-05] MEDS: OXYCODONE HCL IR 5 MG TAB (IMMEDIATE RELEASE) PO PRN (23:39)
[2018-11-06] MEDS: LEVOTHYROXINE SODIUM 25 MCG TABLET PO SCH (05:35)
[2018-11-06 07:26] LABS: Hemoglobin 7.2 g/dL (12.0-16.0); Mean Corpuscular Hgb Conc 31.3 g/dL (32-36); Mean Corpuscular Volume 95.4 fL (80-100); RDW Coefficient of Variation 18.2 % (11.5-14.5); RDW Standard Deviation 62.8 fL (36.4-46.3); Red Blood Count 2.41 M/uL (4.2-5.4); White Blood Count 4.13 K/uL (4.8-10.8)
[2018-11-06 07:46] LABS: Basophils # (auto) 0.02 K/uL (0-0.2); Basophils % (auto) 0.5 %; Eosinophils # (auto) 0.09 K/uL (0-0.5); Eosinophils % (auto) 2.2 %; Immature Granulocytes # (auto) 0.02 K/uL (0.00-0.02); Immature Granulocytes % (auto) 0.5 %; Lymphocytes # (auto) 0.95 K/uL (1.2-3.4); Mean Platelet Volume 10.8 fL (7.4-10.4); Monocytes # (auto) 0.69 K/uL (0.11-0.59); Monocytes % (auto) 16.7 %; Neutrophils # (auto) 2.36 K/uL (1.4-6.5); Neutrophils % (auto) 57.1 %; Platelet Count 81 K/uL (130-400)
[2018-11-06 07:54] LABS: Calcium 7.9 mg/dl (8.5-10.1); Creatinine Clr Calc Pharmacy 68.7 ml/min; Est GFR (African American) 93.2; Est GFR (Non-African American) 80.5; Magnesium 1.9 mg/dl (1.8-2.4); Potassium 4.3 mmol/L (3.5-5.1)
[2018-11-06] MEDS: ACETAMINOPHEN 325 MG TAB PO PRN (08:21)
[2018-11-06] MEDS: PANTOprazole 40 MG TAB PO SCH (08:23)
[2018-11-06] MEDS: CALCIUM 600MG + VIT D 400 IU TAB PO SCH (08:23)
[2018-11-06] MEDS: azaTHIOprine 50 MG TAB PO SCH (08:24)
[2018-11-06] MEDS: FERROUS SULFATE 325 MG TAB PO SCH (08:24)
[2018-11-06] MEDS: MULTIVITAMIN TAB PO SCH (08:25)
[2018-11-06] MEDS: PRAVASTATIN SOD 10 MG TAB PO SCH (08:25)
[2018-11-06] MEDS: predniSONE 5 MG TAB PO SCH (08:27)
[2018-11-06] MEDS: TACROLIMUS 1 MG CAP PO SCH ×2 (08:27→20:35)
[2018-11-06] MEDS: METOPROLOL SUCC 25MG EXT REL TAB PO SCH (08:28)
[2018-11-06] MEDS: FLUTICASONE PROPIONATE NA SPR 16 GM BTL NAE SCH (08:29)
--- NOTE | 2018-11-06 13:35 | Hospitalist Progress Note ---
Date of Service November 06, 2018 Assessment & Plan (1) Left upper quadrant pain: Patient is a 43 yr female with H/O cardiomyopathy s/p heart transplant in 12/2018 at [facility] and other problems presents with history of left upper quadrant abdominal pain which has been gradually worsening since 4 days duration. Also has a 3-month history of chills, night sweats, weight loss and current work-up suggestive of possible lymphoma. CT ABD:Small bilateral pleural effusions with subtle irregularity of the pleural surface. Splenomegaly. 3. 3 cm right mass at the level of the right renal pelvis with encasement of the proximal right ureter. Although nonspecific, given the history of lymphoma and the lack of hydronephrosis, lymphoma is favored over a uroepithelial neoplasm. Minimal free pelvic fluid. Nonspecific enlargement of the lower uterine segment/cervix Patient is planned to be transferred to [facility] for further evaluation and management by center with transplant team at [facility] (2) Splenomegaly: (3) Right renal mass: Management as above Pain control Awaiting transfer to [facility], transplant center Accepting Physician: : Dana Stewart Heart transplant center #[phone] Monitor CBC (4) Anemia: (5) Thrombocytopenia: Continue iron supplement Monitor CBC (6) History of heart transplant: H/O viral cardiomyopathy S/P heart transplant at [facility] on 12/2011 Continue tacrolimus, azathioprine, prednisone (7) History of carotid artery dissection: H/O carotid artery dissection with CVA Continue aspirin, statin, metoprolol (8) Hypothyroidism: Normal TSH Continue levothyroxine DVT Px SCDs Re:anemia, thrombocytopenia Code Status Full Code Disposition Transfer to [facility] when bed available Subjective Patient seen and examined at bedside Reports abdominal pain which has been unchanged since yesterday Denies nausea, vomiting, chest pain, shortness of breath, diarrhea, hematuria Family at bedside Waiting for placement--[facility] for further evaluation and management No other complaints Review of Systems Review of Systems: All systems reviewed & are unremarkable except as noted in HPI & below Physical Exam Physical Exam: Physical Exam: Vitals signs as noted above General Appearance:Moderately built and nourished, no apparent distress Head: normocephalic, Atraumatic Eyes: normal inspection, EOMI Neck: supple, Trachea midline Respiratory/Chest: Normal breath sounds, CTA Cardiovascular: S1, S2, No murmur Abdomen/GI:Soft, LUQ tender, Bowel sounds present Extremities/Musculoskelatal:normal inspection, no edema Neurologic/Psych:AAOX3, grossly no focal neurological deficits Skin: normal color, warm Results & Data Vital Signs (Past 12 Hours) Vital Signs Temp Pulse Resp BP Pulse Ox 11/06/18 08:28 80 101/62 11/06/18 07:44 37.2 C 83 16 101/65 99 Laboratory Results Short CBC 11/06/18 Range/Units 06:47 WBC 4.13 L (4.8-10.8) K/uL Hgb 7.2 L (12.0-16.0) g/dL Hct 23.0 L (37-47) % Plt Count 81 L (130-400) K/uL BMP 11/06/18 06:47 Sodium 142 Potassium 4.3 Chloride 110 H Carbon Dioxide 27 BUN 14 Creatinine 0.87 Glucose 83 Calcium 7.9 L (1) Anemia Anemia type: unspecified type Qualified Code(s): D64.9 - Anemia, unspecified
[2018-11-06] MEDS: OXYCODONE HCL IR 5 MG TAB (IMMEDIATE RELEASE) PO PRN ×2 (14:24→20:38)
[2018-11-06] MEDS ORDERED: SODIUM CHLORIDE 0.9% 250 ML IV PRN (17:34)
[2018-11-06 20:26] LABS: Hematocrit (blood only) 26.7 % (37-47); Hemoglobin 8.4 g/dL (12.0-16.0)
[2018-11-06] MEDS: LORATADINE 10 MG TAB PO SCH (20:35)
[2018-11-06] MEDS: ASPIRIN 81 MG ECTAB PO SCH (20:35)
[2018-11-06] MEDS: MAGNESIUM OXIDE 400 MG TAB PO SCH (20:35)
[2018-11-07] MEDS: ACETAMINOPHEN 325 MG TAB PO PRN ×2 (00:01→23:48)
[2018-11-07] MEDS: LEVOTHYROXINE SODIUM 25 MCG TABLET PO SCH (05:22)
[2018-11-07 07:20] LABS: Hematocrit (blood only) 23.5 % (37-47); Hemoglobin 7.5 g/dL (12.0-16.0); Mean Corpuscular Hgb Conc 31.9 g/dL (32-36); Mean Corpuscular Volume 93.6 fL (80-100); RDW Coefficient of Variation 18.3 % (11.5-14.5); RDW Standard Deviation 62.2 fL (36.4-46.3); Red Blood Count 2.51 M/uL (4.2-5.4); White Blood Count 4.84 K/uL (4.8-10.8)
[2018-11-07 07:29] LABS: Mean Platelet Volume 10.1 fL (7.4-10.4); Platelet Count 74 K/uL (130-400)
[2018-11-07 07:54] LABS: BUN Creatinine Ratio 15.7 (10-20); Calcium 7.9 mg/dl (8.5-10.1); Creatinine Clr Calc Pharmacy 65.7 ml/min; Est GFR (African American) 88.3; Est GFR (Non-African American) 76.2; Magnesium 1.9 mg/dl (1.8-2.4)
[2018-11-07 08:02] LABS: Ovalocytes 1+; Polychromasia 1+
[2018-11-07 08:05] LABS: ALC (manual) 0.81 K/uL (1.2-3.4); Basophils # (manual) 0.04 K/uL (0-0.2); Basophils % (manual) 0.9 %; Blast # (manual) 0.04 K/uL (0-0); Blast Cells % (manual) 0.9 %; Lymphocytes # (manual) 0.81 K/uL (1.2-3.4); Lymphocytes % (manual) 16.7 %; Monocytes # (manual) 0.26 K/uL (0.11-0.59); Monocytes % (manual) 5.3 %; Neutrophils % (manual) 76.2 %
[2018-11-07] MEDS: CALCIUM 600MG + VIT D 400 IU TAB PO SCH (08:30)
[2018-11-07] MEDS: FERROUS SULFATE 325 MG TAB PO SCH (08:31)
[2018-11-07] MEDS: PRAVASTATIN SOD 10 MG TAB PO SCH (08:31)
[2018-11-07] MEDS: predniSONE 5 MG TAB PO SCH (08:31)
[2018-11-07] MEDS: azaTHIOprine 50 MG TAB PO SCH (08:31)
[2018-11-07] MEDS: FLUTICASONE PROPIONATE NA SPR 16 GM BTL NAE SCH (08:31)
[2018-11-07] MEDS: MULTIVITAMIN TAB PO SCH (08:31)
[2018-11-07] MEDS: METOPROLOL SUCC 25MG EXT REL TAB PO SCH (08:32)
[2018-11-07] MEDS: TACROLIMUS 1 MG CAP PO SCH ×2 (08:32→20:47)
[2018-11-07] MEDS: PANTOprazole 40 MG TAB PO SCH (08:32)
--- NOTE | 2018-11-07 10:55 | Discharge Summary ---
Date of Service November 07, 2018 Admission HPI Per Admitting Provider Pt is 43 y/o F with PMH cardiomyopathy s/p heart transplant in 12/2018 at [facility], h/o carotid artery dissection with CVA, hypothyroidism presented to ER with complaint of abdominal pain x4 days. Pain is made worse with movement, walking. Denies any N/V/D and has been eating and drinking without difficulty or aggravated abdominal pain. Patient with recent 3-month history of chills, night sweats, weight loss. Denies any changes in those symptoms. Denies any recorded fevers, urinary symptoms. Current work-up for suspected lymphoma. Has been following with [facility]. On 11/01/18 had R ureteroscopy and states was doing well post procedure. Denies CLIFTON, dizziness, syncope, vision changes, neck pain, CP, SOB, orthopnea, palpitations, cough, sore throat, choking, otalgia, rhinorrhea, paresthesias, weakness, extremity weakness, extremity edema, rashes. Today in ER had workup with CT abd/pelvis showing 3 cm right mass at the level of the right renal pelvis with encasement of the proximal right ureter. ER physician in contact with [facility] Heart transplant center and transfer center. [facility] wanted pt transferred however no bed available today and requested pt being admitted and transferred when bed available. Prefer to do further workup at [facility]. Accepting Physician Dr Dana Stewart. Please see previous DC Summary 11/05, this is an addendum, hoping for placement today Admission Exam Per Admitting Provider See Prev DC Summary Principal Diagnosis See Prev DC Summary Discharge Exam ROS-No Headache, No Visual Changes, No Nausea, No Vomiting, No Fever, No Chills, No Neck Pain or Stiffness, No Chest Pain, No Palpitations, No SOB, No FRANCIS, No Cough, No Sputum, No Wheezing, No Abdominal Pain, No Diarrhea, No Hematemesis, No Hemoptysis, No Unexpected Weight Loss, No Flank pain, No Melena, No Hematochezia, No Frequency, No Urgency, No Burning, No Hematuria, No Rashes, No Diaphoresis. Appetite is Normal, c/o L Breast Lump Physical Exam Gen-AAO x 3, NAD, Afebrile Head-NCAT, EOMI, PERRLA, Anicteric Sclera, No Posterior Pharyngeal Erythema Neck-Supple, No JVD, No Thyromegaly, No Masses, No LAD, No Bruits Lungs-Clear to Auscultation Bilaterally, No Rales, No Rhonchi, No Wheezing, No Crepitus Chest-Palpable L Breast Lump, No S4, +S1, +S2, No S3, No Murmurs, No Rubs, No Gallops, No Ectopy Abdomen-Soft, Bowel Sounds Present, Non Tender, Non Distended, No Hepatomegaly, No Splenomegaly, No Palpable Masses, No Rebound, No Rigidity, No Guarding Musculoskeletal-Full Range of Motion Bilaterally, No CVAT Extremities-No Cyanosis, No Clubbing, No Edema Nuero-Cranial Nerves II-XII grossly intact, Motor WNL, DTRs WNL, Strength WNL, Non Focal Psych-Normal Mood Discharge Data Allergies Allergy/AdvReac Type Severity Reaction Status Date / Time Cephalosporins Allergy Unknown UNKNOWN Verified 11/05/18 10:57 hydralazine Allergy Unknown unknown Verified 11/05/18 10:57 Penicillins Allergy Unknown HIVES Verified 11/05/18 10:57 Sulfa (Sulfonamide Allergy Unknown HIVES Verified 11/05/18 10:57 Antibiotics) Consultations 11/05/18 15:11 ED Decision to Admit Stat 11/05/18 20:40 Burn CD for patient Routine See Prev DC Summary Ordered Studies 11/05/18 09:48 CT abd pelvis oral and IV con Stat Hospital Course (1) Left upper quadrant pain: Patient is a 43 yr female with H/O cardiomyopathy s/p heart transplant in 12/2018 at [facility] and other problems presents with history of left upper quadrant abdominal pain which has been gradually worsening since 4 days duration. Also has a 3-month history of chills, night sweats, weight loss and current work-up suggestive of possible lymphoma. CT ABD:Small bilateral pleural effusions with subtle irregularity of the pleural surface. Splenomegaly. 3. 3 cm right mass at the level of the right renal pelvis with encasement of the proximal right ureter. Although nonspecific, given the history of lymphoma and the lack of hydronephrosis, lymphoma is favored over a uroepithelial neoplasm. Minimal free pelvic fluid. Nonspecific enlargement of the lower uterine segment/cervix Patient is planned to be transferred to [facility] for further evaluation and management by center with transplant team at [facility] Total Time Total Time Spent Total Time Spent (In Minutes): 45 mins Total Time Includes: Examination of the Patient, Discharge Planning, Medication Reconciliation and Communication With Other Providers Discharge Plan Discharge Items Patient Disposition: Transfer Acute Care Hospital Reason For Visit: ABDOMINAL PAIN Discharge Diagnosis: Severe Abdominal pain Condition: Good Discharge Goals: Diagnostic testing and Therapeutic intervention Specific Goals: Treatment Activity: Resume your previous activity Lifting: Gradually increase as tolerated Bathing: No limitations Sexual Activity: When tolerated Exercise/Sports: None Driving/Machine Use: No limitations Weightbearing: Full weightbearing Non-emergency contact: Primary Care Provider and Surgeon Call non-emergency contact if: you have any medication questions, your symptoms worsen, your pain is not controlled and you have a fever Follow-up/Referrals: Dell Milton MD [Primary Care Provider] - Diet: Regular Addtl Provider Instructions: Current Inpatient Medications Acetaminophen (Tylenol) 650 mg PO Q4H PRN PRN Reason: pain/fever Stop: 12/05/18 16:25 Aspirin (Ecotrin Ectab) 81 mg PO HS [facility] Stop: 12/05/18 20:59 Azathioprine (Imuran) 100 mg PO DAILY [facility] Stop: 12/06/18 08:59 Ferrous Sulfate (Feosol) 325 mg PO DAILY [facility] Stop: 12/06/18 08:59 Fluticasone Propionate (Flonase) 2 sprays CASIE QAM [facility] Stop: 12/06/18 08:59 Levothyroxine Sodium (Synthroid) 25 mcg PO DAILYBB [facility] Stop: 12/06/18 06:29 Loratadine (Claritin) 10 mg PO PM [facility] Stop: 12/05/18 20:59 Magnesium Oxide (Mag-Ox) 400 mg PO PM [facility] Stop: 12/05/18 20:59 Metoprolol Succinate (Toprol Xl) 12.5 mg PO QAM [facility] Stop: 12/06/18 08:59 Morphine Sulfate (Morphine Sulfate) 1 mg IV Q1H PRN PRN Reason: Pain Stop: 11/19/18 16:25 Multivitamins (Multivitamin Tab) 1 tab PO QAM [facility] Stop: 12/06/18 08:59 Multivitamins/Minerals (Caltrate Plus) 1 tab PO QAM [facility] Stop: 12/06/18 08:59 Oxycodone HCl (Roxicodone Immediate Rel) 5 mg PO Q6H PRN PRN Reason: Moderate Pain Stop: 11/19/18 16:25 Pantoprazole Sodium (Protonix) 40 mg PO DAILY [facility] Stop: 12/06/18 08:59 Pravastatin Sodium (Pravachol) 10 mg PO QAM [facility] Stop: 12/06/18 08:59 Prednisone (Prednisone) 5 mg PO QAM [facility] Stop: 12/06/18 08:59 Tacrolimus (Prograf) 2 mg PO BID [facility] Stop: 12/05/18 20:59 You are current being transferred to [facility] for further care. It recommended that you follow up with PCP within one week of discharge. It was a pleasure taking care of you! Please call if you have any questions or problems. You can reach a [facility] hospitalist on duty at [facility] 24 hours a day by calling [phone]. Take care of yourself. Kassy Glez, DO [facility] Hospitalist Prescriptions: Continued aspirin 81 mg Tablet,Delayed Release (Dr/Ec) 81 mg PO HS RF: 0 calcium carbonate-vitamin D3 1,000 mg(2,500 mg)-800 unit Tablet 1 tab PO QAM RF: 0 levothyroxine 25 mcg Tablet 25 mcg PO QAM RF: 0 magnesium oxide 400 mg magnesium Capsule 400 mg PO PM RF: 0 metoprolol succinate 25 mg Tablet Extended Release 24 Hr 12.5 mg PO QAM RF: 0 multivitamin Tablet 1 tab PO QAM RF: 0 omeprazole 20 mg Tablet,Delayed Release (Dr/Ec) 20 mg PO QAM RF: 0 prednisone 5 mg Tablet 5 mg PO QAM RF: 0 tacrolimus 1 mg Capsule,Extended Release 24hr 2 mg PO BID RF: 0 fluticasone propionate 50 mcg/actuation [place],Suspension 2 spray INTRANASAL QAM RF: 0 pravastatin 10 mg Tablet 10 mg PO QAM RF: 0 azathioprine 50 mg tablet 100 mg PO DAILY RF: 0 ferrous sulfate 325 mg (65 mg iron) Tablet 325 mg PO DAILY RF: 0 loratadine 10 mg Tablet 10 mg PO PM RF: 0 Stand-Alone Forms: Call Back Authorization, [facility] Discharge Orders: Discharge Order (Routine); Ordered 11/05/18 Ordered By: Charmaine Noriega Admission Data Admit Date/Time: 11/06/18 17:30 Attending Provider: Mario Lomeli Admit Provider: Kassy Glez Primary Care Provider: Dell Milton Other Providers: Kassy Glez Service: Medical
[2018-11-07] MEDS: OXYCODONE HCL IR 5 MG TAB (IMMEDIATE RELEASE) PO PRN ×2 (13:30→20:50)
--- NOTE | 2018-11-07 18:29 | Ultrasound Report ---
Study: Ultrasound left breast. HISTORY: Nodule. Mass. FINDINGS: Complex nodular density 12:00 position left breast. This measures 1.8 x 1.0 cm. The mass is primarily solid with minimal internal cystic change. Neoplastic process must be considered. IMPRESSION: 1. Complex primarily solid nodule 12:00 position left breast. 2. A neoplastic process must be considered with biopsy recommended. 3. This should be combined with diagnostic mammography. Electronically signed by: Abhi Gonzales M.D. 11/07/2018 6:28 PM
[2018-11-07] MEDS: LORATADINE 10 MG TAB PO SCH (20:46)
[2018-11-07] MEDS: ASPIRIN 81 MG ECTAB PO SCH (20:47)
[2018-11-07] MEDS: MAGNESIUM OXIDE 400 MG TAB PO SCH (20:47)
[2018-11-08] MEDS: LEVOTHYROXINE SODIUM 25 MCG TABLET PO SCH (05:36)
[2018-11-08] MEDS: ACETAMINOPHEN 325 MG TAB PO PRN ×2 (08:00→18:18)
[2018-11-08] MEDS: METOPROLOL SUCC 25MG EXT REL TAB PO SCH (08:05)
[2018-11-08] MEDS: azaTHIOprine 50 MG TAB PO SCH (08:05)
[2018-11-08] MEDS: TACROLIMUS 1 MG CAP PO SCH ×2 (08:05→20:37)
[2018-11-08] MEDS: predniSONE 5 MG TAB PO SCH (08:05)
[2018-11-08] MEDS: PRAVASTATIN SOD 10 MG TAB PO SCH (08:05)
[2018-11-08] MEDS: FERROUS SULFATE 325 MG TAB PO SCH (08:05)
[2018-11-08] MEDS: PANTOprazole 40 MG TAB PO SCH (08:05)
[2018-11-08] MEDS: CALCIUM 600MG + VIT D 400 IU TAB PO SCH (08:05)
[2018-11-08] MEDS: MULTIVITAMIN TAB PO SCH (08:05)
[2018-11-08] MEDS: FLUTICASONE PROPIONATE NA SPR 16 GM BTL NAE SCH (08:08)
[2018-11-08] MEDS: ASPIRIN 81 MG ECTAB PO SCH (20:36)
[2018-11-08] MEDS: LORATADINE 10 MG TAB PO SCH (20:36)
[2018-11-08] MEDS: MAGNESIUM OXIDE 400 MG TAB PO SCH (20:36)
[2018-11-09] MEDS: OXYCODONE HCL IR 5 MG TAB (IMMEDIATE RELEASE) PO PRN (00:09)
[2018-11-09] MEDS: LEVOTHYROXINE SODIUM 25 MCG TABLET PO SCH (05:49)
[2018-11-09] MEDS: ACETAMINOPHEN 325 MG TAB PO PRN (07:35)
[2018-11-09] MEDS: METOPROLOL SUCC 25MG EXT REL TAB PO SCH (07:42)
[2018-11-09] MEDS: TACROLIMUS 1 MG CAP PO SCH (07:43)
[2018-11-09] MEDS: PRAVASTATIN SOD 10 MG TAB PO SCH (07:43)
[2018-11-09] MEDS: CALCIUM 600MG + VIT D 400 IU TAB PO SCH (07:43)
[2018-11-09] MEDS: PANTOprazole 40 MG TAB PO SCH (07:43)
[2018-11-09] MEDS: predniSONE 5 MG TAB PO SCH (07:43)
[2018-11-09] MEDS: MULTIVITAMIN TAB PO SCH (07:43)
[2018-11-09] MEDS: azaTHIOprine 50 MG TAB PO SCH (07:43)
[2018-11-09] MEDS: FERROUS SULFATE 325 MG TAB PO SCH (07:44)
[2018-11-09] MEDS: FLUTICASONE PROPIONATE NA SPR 16 GM BTL NAE SCH (07:44)
== END 2018-11-09 12:09 | disposition home or self-care (01) | DRG 392 ==
LOC: ED 09:27 → 3W 09:27 → SUATTDRO 11-06 17:30